=== PATIENT | female | born 2000 | race Caucasian/White ===

== ENCOUNTER 2024-08-31 21:18 | Inpatient (IN) ==
--- NOTE | 2024-08-31 22:09 | Emergency Department Note ---
Impression & Plan Depression with suicidal ideation, Alcoholic intoxication ED Provider Note NAME: REX BROWNING AGE: 23 SEX: F : 2000 ARRIVES VIA: Walk-In INFORMANT: Patient, triage report ED PROVIDER(S): Og Guzman MD CHIEF COMPLAINT: Suicidal ideation MEDICAL DECISION MAKING: Patient presents due to concern for suicidal ideation but without specific plan reported to myself. Patient is requesting inpatient treatment which I do not think is unreasonable provide she is medically cleared. Blood work was obtained. Patient with a white count of 12 he denies any infectious symptoms. H&H is normal with normal platelet count kidney function is unremarkable. Urinalysis negative for blood or infection test negative. Salicylate Tylenol are negative and UDS is negative. The patient's alcohol is 218. Pending clearance around 2 or 3 in the morning. COVID-negative. I did speak with case management and they will follow for reassessment post clearance of her alcohol. Patient signed out to Dr. Colmenares pending reevaluation and disposition. Discussion w/ other healthcare providers: None Prior /Outside records reviewed: None Differential diagnosis: Mood disorder, infection, hypoglycemia, electrolyte abnormalities, dehydration, medication side effect among others were considered. Diagnostics, as interpreted by me: ECG: None Medical decision rules: Suicide risk severity score Imaging studies: None HPI: Patient presents due to concern for SI but without plan. Patient denies any HI or AVH. The patient states that she has been feeling some the symptoms over the last week and states that her classwork has been "a lot." Patient states that she is doing okay in her classes but she does feel that it has been more unmanageable. The patient also did recently start a new job at [employer]. Patient denies any auditory or visual hallucinations. The patient does take bupropion and Prozac and states that she has been compliant. No recent changes or missed doses. Patient denies any access to guns or firearms. The patient is seeking inpatient treatment. Patient states that her LMP was about 1 month ago. This is normal for her. Patient states that her sleep and appetite have been fine. Patient denies any abdominal pain or nausea vomiting. Patient does admit to drinking 2 glasses of wine with friends earlier this evening but no additional. Patient had given a sample of toilet water for her urinalysis and when asked the patient states that she was concerned that she would be charged for her alcohol use and it might be tied to her suicidal ideation. PAST MEDICAL HISTORY: Anxiety, depression PAST SURGICAL HISTORY: No pertinent past surgical history SOCIAL HISTORY: [employer] student. Uses alcohol socially. Denies drug use. HOME MEDICATIONS: See Below ALLERGIES: See Below VITALS: See Below PHYSICAL EXAMINATION: GENERAL: Tearful but nontoxic and in no apparent distress. EYE EXAM: Normal conjunctiva. PERRL, no anisocoria and EOM's grossly intact w/o pain. OROPHARYNX: Moist mucus membranes, grossly normal dentition. NECK: Trachea midline, no stridor. Supple, no nuchal rigidity, no adenopathy, non-tender. No signs of meningismus. FROM of the neck with good chin to chest and neck extension. LUNGS: Clear to auscultation. Normal chest wall mechanics. HEART: NSR, no MRG. ABDOMEN: Abdomen soft, non-tender, no masses, no rebound or guarding. BACK: No CVA TTP. SKIN: No rashes and no bruising. UPPER EXTREMITIES: Upper extremities are grossly normal. LOWER EXTREMITIES: Grossly normal, no edema. NEURO EXAM: A&O x3, cranial nerves II-XII grossly intact, normal speech, moves all 4 extremities. Psych: Positive SI, negative HI or AVH. Past Med/Surg History Problem List (Updated 08/31/24 @ 23:52 by Og Guzman MD) Alcoholic intoxication (Acute) Depression with suicidal ideation (Acute) Social History Smoking Status: Current every day smoker Feels Safe at Home: Yes Results & Data (ED) Vital Signs Vital Signs - 24 hr 08/31/24 21:22 Temperature 36.8 C Temperature Source Temporal Artery Scan Pulse Rate 123 H Respiratory Rate 22 Blood Pressure 119/83 Blood Pressure Mean 95 Pulse Oximetry 97 Sepsis Recent Fever Within 48 Hours No Sepsis New/Unexplained Change in Mental Status N/A Sepsis Action Taken by Nursing No Action Required Home Medications Current Medication List: was personally reviewed by me Laboratory Data Attestation: I reviewed the patient's lab results. 08/31/24 22:46 08/31/24 21:35 Lab Results 10/12/24 10/12/24 10/12/24 Range/Units 21:35 22:46 Unknown WBC Cancelled 12.53 H RBC Cancelled 4.82 Hgb Cancelled 13.7 Hct Cancelled 42.4 MCV Cancelled 88.0 MCH Cancelled 28.4 MCHC Cancelled 32.3 RDW Std Deviation Cancelled 42.5 RDW Coeff of Shlomo Cancelled 13.1 Plt Count Cancelled 375 MPV Cancelled 9.0 L Immature Gran % (Auto) Cancelled 0.2 Neut % (Auto) Cancelled 61.5 Lymph % (Auto) Cancelled 31.4 [place] % (Auto) Cancelled 5.9 Eos % (Auto) Cancelled 0.5 Baso % (Auto) Cancelled 0.5 Neut # (Auto) Cancelled 7.72 H Lymph # (Auto) Cancelled 3.93 H [place] # (Auto) Cancelled 0.74 H Eos # (Auto) Cancelled 0.06 Baso # (Auto) Cancelled 0.06 Immature Gran # (Auto) Cancelled 0.02 Absolute Nucleated RBC Cancelled Nucleated RBC % (auto) Cancelled Neutrophils % (Manual) Cancelled Band Neutrophils % Cancelled Lymphocytes % (Manual) Cancelled Prolymphocyte % Cancelled Reactive Lymphs % (Man) Cancelled Monocytes % (Manual) Cancelled Eosinophils % (Manual) Cancelled Basophils % (Manual) Cancelled Metamyelocytes % (Man) Cancelled Myelocytes % (Man) Cancelled Promyelocytes % (Man) Cancelled Blast Cells % (Manual) Cancelled Plasma Cell % (Manual) Cancelled Other Cells % Cancelled Nucleated RBC % Cancelled Neutrophils # (Manual) Cancelled Band Neutrophils # Cancelled Total Absolute Neuts Cancelled Lymphocytes # (Manual) Cancelled Prolymphocyte # Cancelled Reactive Lymphs # Cancelled Total Abs Lymphocytes Cancelled Monocytes # (Manual) Cancelled Eosinophils # (Manual) Cancelled Basophils # (Manual) Cancelled Metamyelocytes # (Man) Cancelled Myelocytes # (Manual) Cancelled Promyelocytes # (Man) Cancelled Blast Cells # (Man) Cancelled Plasma Cell # (Manual) Cancelled Other Cells # Cancelled Nucleated RBCs # (Man) Cancelled Hypersegmented Neuts Cancelled Hyposegmented Neuts Cancelled Hypogranular Neuts Cancelled Large Granular Lymphs Cancelled # Lrg Granular Lymphs Cancelled Hairy Cells Cancelled Smudge Cells Cancelled Toxic Granulation Cancelled Toxic Vacuolation Cancelled Dohle Bodies Cancelled [place] Rods Cancelled Platelet Estimate Cancelled Hypogranular Platelets Cancelled Giant Platelets Cancelled Platelet Satelliting Cancelled RBC Morphology Cancelled Polychromasia Cancelled Hypochromasia Cancelled Poikilocytosis Cancelled Basophilic Stippling Cancelled Anisocytosis Cancelled Microcytosis Cancelled Macrocytosis Cancelled Spherocytes Cancelled Pappenheimer Bodies Cancelled Sickle Cells Cancelled Target Cells Cancelled Tear Drop Cells Cancelled Ovalocytes Cancelled Stomatocytes Cancelled [place] Bodies Cancelled Echinocytes Cancelled Acanthocytes (Spur) Cancelled Rouleaux Cancelled RBC Agglutinates Cancelled Schistocytes Cancelled [place]zary Cell Cancelled Sodium 139 (136-145) mmol/L Potassium 3.5 (3.5-5.1) mmol/L Chloride 107 (98-107) mmol/L Carbon Dioxide 21 (21-32) mmol/L Anion Gap 11 (3-11) BUN 8 (6-23) mg/dl Creatinine 0.70 (0.6-1.2) mg/dl Est Cr Clr Drug Dosing 91.3 ml/min eGFR 126.11 BUN/Creatinine Ratio 11.4 (10-20) Glucose 93 (70-99(Fasting)) mg/dl Calcium 9.5 (8.6-10.3) mg/dl Total Bilirubin 0.4 (0.2-1.0) mg/dl AST 19 (13-39) U/L ALT 14 (7-52) U/L Alkaline Phosphatase 69 (34-104) U/L Total Protein 8.0 (6.0-8.3) gm/dl Albumin 5.2 H (3.4-5.0) gm/dl Globulin 2.8 (2.5-4.0) gm/dl Albumin/Globulin Ratio 1.9 (0.9-2) TSH 1.720 (0.300-4.500) uIu/ml HCG, Qual Negative (Negative) Urine Color Yellow Urine Appearance Clear (Clear) Urine pH 6.0 (4.5-7.5) Ur Specific [place] 1.003 (1.000-1.030) Urine Protein Negative (Negative) Urine Glucose (UA) Negative (Negative) Urine Ketones Negative (Negative) Urine Blood Negative (Negative) Urine Nitrite Negative (Negative) Urine Bilirubin Negative (Negative) Urine Urobilinogen Negative (Negative) Ur Leukocyte Esterase Negative (Negative) Urine Test Negative (Negative) Salicylates < 3.0 L (3.0-30) mg/dl Urine Opiates Screen Neg (Neg) Ur Methadone, Qual Neg (Neg) Urine Fentanyl Screen Neg (Neg) Acetaminophen < 3 L (10-30) ug/ml Urine Barbiturates Neg (Neg) Ur Phencyclidine (PCP) Neg (Neg) U Amphetamin/Meth Scrn Neg (Neg) MDMA (Ecstasy) Screen Neg (Neg) U Benzodiazepines Scrn Neg (Neg) Ur Cocaine Metabolite Neg (Neg) U Marijuana (THC) Screen Neg (Neg) Ethyl Alcohol mg/dL 218.7 H (<10.0) mg/dl SARS-CoV-2, RNA, NAAT NEGATIVE (NEGATIVE) Blood Parasites ID Cancelled Discharge Plan Visit Data Chief Complaint: Mental Health Evaluation Stated Complaint: MENTAL HEALTH EVAL ED Provider: Og Guzman Discharge Problem: Depression with suicidal ideation, Alcoholic intoxication Forms Stand Alone Forms: [facility], Suicide Prevention Resources Referrals Referrals: PCP,NO [Primary Care Provider] - Discharge Problem: Alcoholic intoxication Qualifiers: Complication of substance-induced condition: uncomplicated Qualified Code(s): F 10.920 - Alcohol use, unspecified with intoxication, uncomplicated
[2024-08-31 22:14] LABS: Albumin Level 5.2 gm/dl (3.4-5.0); Bilirubin,Total 0.4 mg/dl (0.2-1.0); Calcium 9.5 mg/dl (8.6-10.3); Potassium 3.5 mmol/L (3.5-5.1)
[2024-08-31 22:20] LABS: Albumin Globulin Ratio 1.9 (0.9-2); BUN Creatinine Ratio 11.4 (10-20); Creatinine Clr Calc Pharmacy 91.3 ml/min; Globulin 2.8 gm/dl (2.5-4.0)
[2024-08-31 22:22] LABS: Acetaminophen < 3 ug/ml (10-30); Pregnancy Test, Serum Negative (Negative); Salicylate < 3.0 mg/dl (3.0-30)
[2024-08-31 22:51] LABS: Thyroid Stimulating Hormone 1.72 uIu/ml (0.300-4.500)
[2024-08-31 22:53] LABS: Pregnancy Test, Urine Negative (Negative)
[2024-08-31 23:09] LABS: Basophils # (auto) 0.06 K/uL (0.00-0.20); Basophils % (auto) 0.5 %; Eosinophils # (auto) 0.06 K/uL (0.00-0.50); Eosinophils % (auto) 0.5 %; Hematocrit (blood only) 42.4 % (37.0-47.0); Hemoglobin 13.7 g/dl (12.0-16.0); Immature Granulocytes # (auto) 0.02 K/uL (0.01-0.20); Immature Granulocytes % (auto) 0.2 %; Lymphocytes # (auto) 3.93 K/uL (1.20-3.40); Lymphocytes % (auto) 31.4 %; Mean Corpuscular Hemoglobin 28.4 pg (25.0-34.0); Mean Corpuscular Hgb Conc 32.3 g/dL (32.0-36.0); Monocytes # (auto) 0.74 K/uL (0.11-0.59); Monocytes % (auto) 5.9 %; Neutrophils # (auto) 7.72 K/uL (1.40-6.50); Neutrophils % (auto) 61.5 %; Platelet Count 375 K/uL (130-400); RDW Coefficient of Variation 13.1 % (11.5-14.5); RDW Standard Deviation 42.5 fL (36.4-46.3); Red Blood Count 4.82 M/uL (4.20-5.40); White Blood Count 12.53 K/ul (4.8-10.8)
[2024-08-31 23:12] LABS: Appearance Urine Clear (Clear); Bilirubin Urine Negative (Negative); Blood Urine Negative (Negative); Color Urine Yellow; Glucose Urine UA Negative (Negative); Ketones Urine Negative (Negative); Leukocyte Esterase Urine Negative (Negative); Nitrite Urine Negative (Negative); Protein Urine Negative (Negative); Specific Gravity Urine 1.003 (1.000-1.030); Urobilinogen Urine Negative (Negative)
[2024-08-31 23:41] LABS: Amphetamines+Metham, Urine Neg (Neg); Barbiturates, Urine Neg (Neg); Benzodiazepine, Urine Neg (Neg); Cocaine, Urine Neg (Neg); Fentanyl, Urine Neg (Neg); MDMA (Ecstacy), Urine Neg (Neg); Marijuana, Urine Neg (Neg); Methadone, Urine Neg (Neg); Opiate, Urine Neg (Neg); Phencyclidine, Urine Neg (Neg)
--- NOTE | 2024-09-01 00:18 | Emergency Department Note ---
ED Visit Note Date and Time: 09/01/2024 0015 Interval History: Sign out received from Dr. Guzman who reviewed details of the encounter. Patient was pending Sobriety. Summary: Patient was evaluated by the ED psychiatric piano case maker and remained suicidal. She was referred to [facility]. they have accepted her onto [facility]. is a voluntary admission. .
[2024-09-01] MEDS ORDERED: BISMUTH SUBSALICYLATE 262 MG CHEW PO PRN (05:49)
[2024-09-01] MEDS ORDERED: SODIUM CHLORIDE 0.65% NA SOLN 45 ML (OCEAN) PRN (05:49)
[2024-09-01] MEDS ORDERED: hydrOXYzine HCl 25 MG TAB PO PRN ×2 (05:49)
[2024-09-01] MEDS ORDERED: NICOTINE POLACRILEX 2 MG GUM MT PRN (05:49)
[2024-09-01] MEDS ORDERED: ALUMINUM/MAGNESIUM SUSP 30 ML UDC PO PRN (05:49)
[2024-09-01] MEDS ORDERED: MAGNESIUM HYDROXIDE SUSP 30 ML UDC PO PRN (05:49)
[2024-09-01] MEDS: ACETAMINOPHEN 325 MG TAB PO PRN (06:29)
--- NOTE | 2024-09-01 09:26 | History & Physical ---
Date of Service September 01, 2024 Impression / Recommendations Impression REX BROWNING is a 23-year-old woman and [employer] senior, on leave of absence, who currently lives in [place] with roommates who are friends, has a history of borderline personality disorder, ADHD, nonverbal learning disorder, alcohol use disorder and PTSD, and was admitted on 09/01/24 04:50 on a 201 voluntary commitment for depression with SI and intoxication. Diagnostically consistent with unspecified depression with differential including adjustment disorder with mixed anxiety and depressed mood vs MDD with anxious distress vs generalized anxiety disorder with panic attacks vs exacerbation of borderline personality disorder due to interpersonal, academic and work stressors. Discussed medication treatment options in detail including SSRI vs SNRI vs atomoxetine. Discussed risks, benefits and alternatives. She would like to continue with her fluoxetine for now, but is open to considering atomoxetine in the future, prefers to discuss with her mother and PCP before making any changes. Reviewed side effects of her fluoxetine including but not limited to: GI, RICH, sexual side effects, and counseled on black box warning of potential for emergence of or increased SI and need to let staff know should this occur or should they feel unsafe. Also discussed importance of seeking emergency care following discharge if this side effect occurs in the future. The patient's audit score and use history suggests alcohol use disorder. Motivational interviewing was done as a brief intervention. Intervention was greater than 5 minutes in length and included assessing readiness to quit, advice on how to reduce or abstain and to set a specific goal for this hospitalization. table worker will also assist in anticipating barriers to reducing or abstaining from substance use and in problem-solving for solutions to those problems while arranging for referral to appropriate treatment if she becomes agreeable to this. The patient is in precontemplative stage with regards to transtheoretical model of change. Recommended decreasing consumption due to disinhibiting effects and potential for worsening psychiatric symptoms. Overall I spent a total of 75 minutes for this admission including review of [facility], review of labwork, direct evaluation of the patient, counseling the patient, ordering medication, risk assessment, discussion with the psychiatric liason RN and documentation in the electronic health record. (1) Depression with suicidal ideation: (2) Depression, unspecified: (3) Borderline personality disorder: (4) Nonverbal learning disorder: (5) ADHD: (6) Alcohol use disorder: Plan 10/02/2024: The patient was [facility] to the [facility] on q15 min checks (behavioral with suicide precautions) for safety. The patient will participate in group, recreational, and milieu therapies and will be offered additional individual and family sessions as clinically appropriate. -continue fluoxetine 10mg daily -option to consider atomoxetine Inventory Assets Strengths: supportive relationships, willing to get treatment Needs: safety and stabilization, medication adjustment, additional coping skills, increased outpatient services Suicide Risk Level Suicide Risk Level: Moderate (q15 min suicide checks) (increased SI while in ED but lessened today, feels safe in the hospital, feels able to ask for support) Risk Factors Assessment Male: No : Yes Do You Have Access To A Gun?: No Health Problems: No Mental Health Diagnoses: Yes Substance Use Disorders: Yes Previous Attempt: No Family History of Suicide: No Previous Psychiatric Hospitalization: No Hopelessness: No Protective Factors Assessment Employed: Yes ([employer]) Stable Relationships: Yes Supportive Family: Yes Good Rapport with Provider: Yes Psychiatric History Identifying Data REX BROWNING is a 23-year-old woman and [employer] senior, on leave of absence, who currently lives in [place] with roommates who are friends, has a history of borderline personality disorder, ADHD, nonverbal learning disorder, alcohol use disorder and PTSD, and was admitted on 09/01/24 04:50 on a 201 voluntary commitment for depression with SI and intoxication. Chief Complaint "When I get really overwhelmed it triggers an episode and I get really emotional and like I can't calm down". History of Present Illness She presents for psychiatric admission for worsening depression and SI with feeling unable to remain safe in the context of multiple psychosocial stressors including starting a new job, balancing academic pressures, ending a relationship with a friend who now wants distance and drinking alcohol. She reports increased SI yesterday in the context of "wanting things to stop" and then she suspects she became more suicidal after drinking alcohol. KAYKAY on arrival to the ED was 218. She notes she typically seeks out help in an emergency room when she has these feelings of overwhelming emotions, typically about once per year, and that usually helps her feel "like I'm doing something" and then she often feels better quickly. She thinks she felt unable to safety plan last evening due to her alcohol use and disinhibition. She notes these episodes of "extreme emotions" feel different from panic attacks. She identifies a symptom of depression recently of feeling overwhelmed as well as anxiety with generalized worries, "nervous, fidgety and my brain just stops working". Sometimes she has panic attacks. She also describes a history of social anxiety and feeling "overly watched". She feels her sleep and appetite have been stable. She wishes she could be "more in control of my emotions and think before I act, not feel so much when I feel so much". Reports she was recently diagnosed with ADHD and a nonverbal learning disorder this summer and has been exploring possible medication options for ADHD with her PCP. She is currently prescribed fluoxetine 10mg (has been on this for about 2 years, initially it helped with anxiety but seemed to cause depression was at a higher dose of 20mg at one point and then stopped working; possible side effect of feeling "empty" like "there's nothings going on, I used to think more, feel more") and Vistaril 10mg daily prn for anxiety (she takes this a few times per month but doesn't like that it makes her tired) by her PCP. Psychiatric ROS notable for no current nor history of symptoms of hayes, psychosis (briefly experienced some possible visual hallucinations after of her friend but she was able to reality test, no symptoms after immediacy of the grieving period), nor eating disorder. She sometimes has to do things in a pattern of threes but doesn't feel it takes up excessive amounts of time or gets in the way of things nor is impairing. History of self-harm via biting and scratching herself sometimes when anxious. History of trauma but denies current symptoms of PTSD. Past Psychiatric History Current Psychiatric Diagnosis: Unspecified depressive d/o, ADHD by psychologist Outpatient Services: sees a therapist biweekly intensive outpatient program in [place] in 2021 Previous Psych Admissions: none Do You Have Access To A Gun?: No History of Previous Suicide Attempt: No Past Medication Trials: Wellbutrin, sertraline (wasn't helpful) Past Head Trauma/Neuro History History of Concussion/Seizure: No Allergies Allergy/AdvReac Type Severity Reaction Status Date / Time No Known Allergies Allergy Unverified 09/01/24 15:24 Home Medications Medication Instructions Recorded Confirmed Type Prozac 10 mg PO 1XD 09/01/24 09/01/24 History Family History Family History of: Depression (maternal side), Anxiety (both sides ), Psychosis/ThoughtDisorder (maternal side), Alcoholism/Drug Abuse (paternal side) and Bipolar (maternal side) Alcohol History Hx of Alcohol Use Over the Past 12 Months: Yes (once a week drinks to excess) AUDIT Total Score: 7 Typically drinks socially. She denies any negative consequences but acknowledges she sometimes drinks too much because "I don't feel it until it all hits". Smoking Use Have You Smoked or Used Tobacco Products in the Last 30 Days: Yes tobacco type: cigarettes Smoking Status: Current every day smoker Smoking packs per day: 0.25 Substance History Hx of Prescription Med Misuse Over the Past 12 Months: No Hx of Over the Counter Med Misuse Over the Past 12 Months: No Hx of Inhalent Misuse Over the Past 12 Months: No Hx of Organic Substance Use Over the Past 12 Months: No Hx of Illegal Substances/Street Drug Use Over Past 12 Months: No Problems as a Result of Past Substance Use: None Identified Personal History Living Arrangements: Apartment Childhood: Mother is supportive, no relationship with her dad Highest Grade Completed: Some College Employment Status: Student (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 Other Number Of Children: n/a Beliefs That Will Affect Care: None Current Legal Problems: No Hx Legal Problems: No Hx Traumatic Life Events: Yes Patient History Social History Smoking Status: Current every day smoker Preferred Language: German Communication Ability: Effective Java Support Engineer Required: No Beliefs That Will Affect Care: None Feels Safe at Home: Yes Gender Identity: Female Assistive Devices: None Review of Systems Review of Systems: All systems reviewed & are unremarkable except as noted in HPI & below Physical Exam Psychiatric: Orientation: alert and oriented x 3 Apperance: appropriately dressed and appropriately groomed Eye Contact: good eye contact Motor Behavior: no abnormal motor movements Speech: normal rate/rhythm/volume of speech Affect: + constricted affect Mood: + anxious mood Thought Process: goal directed thought process Thought Content: reality based without delusions Suicidal Thoughts: denies suicidal plan and denies suicidal intent; + reports suicidal thoughts (intermittent thoughts, none so far today) Homicidal Thoughts: denies homicidal thoughts Hallucinations: no auditory hallucinations and no visual hallucinations Cognition: recent memory grossly intact, remote memory grossly intact, attention grossly intact and language grossly intact Estimated Intelligence: consistent with education level Insight: + fair insight Judgment: + limited judgement Vital Signs (Past 24 Hours): Last Vital Signs Temp 36.6 C 09/01/24 02:00 Pulse 94 H 09/01/24 05:45 Resp 18 09/01/24 05:45 BP 106/75 09/01/24 05:45 Pulse Ox 100 09/01/24 05:45 O2 Del Method Room Air 09/01/24 05:45 Exam Statement: A physical exam was performed in the ED by Dr. Guzman for the purposes of medical clearance. I accept that physical as correct and adequate for the purposes of the inpatient physical exam. Results & Data ([facility]) Laboratory Results Laboratory Results - last 24 hr 08/31/24 08/31/24 08/31/24 21:35 22:46 Unknown WBC Cancelled 12.53 H RBC Cancelled 4.82 Hgb Cancelled 13.7 Hct Cancelled 42.4 MCV Cancelled 88.0 MCH Cancelled 28.4 MCHC Cancelled 32.3 RDW Std Deviation Cancelled 42.5 RDW Coeff of Shlomo Cancelled 13.1 Plt Count Cancelled 375 MPV Cancelled 9.0 L Immature Gran % (Auto) Cancelled 0.2 Neut % (Auto) Cancelled 61.5 Lymph % (Auto) Cancelled 31.4 [place] % (Auto) Cancelled 5.9 Eos % (Auto) Cancelled 0.5 Baso % (Auto) Cancelled 0.5 Neut # (Auto) Cancelled 7.72 H Lymph # (Auto) Cancelled 3.93 H [place] # (Auto) Cancelled 0.74 H Eos # (Auto) Cancelled 0.06 Baso # (Auto) Cancelled 0.06 Immature Gran # (Auto) Cancelled 0.02 Absolute Nucleated RBC Cancelled Nucleated RBC % (auto) Cancelled Neutrophils % (Manual) Cancelled Band Neutrophils % Cancelled Lymphocytes % (Manual) Cancelled Prolymphocyte % Cancelled Reactive Lymphs % (Man) Cancelled Monocytes % (Manual) Cancelled Eosinophils % (Manual) Cancelled Basophils % (Manual) Cancelled Metamyelocytes % (Man) Cancelled Myelocytes % (Man) Cancelled Promyelocytes % (Man) Cancelled Blast Cells % (Manual) Cancelled Plasma Cell % (Manual) Cancelled Other Cells % Cancelled Nucleated RBC % Cancelled Neutrophils # (Manual) Cancelled Band Neutrophils # Cancelled Total Absolute Neuts Cancelled Lymphocytes # (Manual) Cancelled Prolymphocyte # Cancelled Reactive Lymphs # Cancelled Total Abs Lymphocytes Cancelled Monocytes # (Manual) Cancelled Eosinophils # (Manual) Cancelled Basophils # (Manual) Cancelled Metamyelocytes # (Man) Cancelled Myelocytes # (Manual) Cancelled Promyelocytes # (Man) Cancelled Blast Cells # (Man) Cancelled Plasma Cell # (Manual) Cancelled Other Cells # Cancelled Nucleated RBCs # (Man) Cancelled Hypersegmented Neuts Cancelled Hyposegmented Neuts Cancelled Hypogranular Neuts Cancelled Large Granular Lymphs Cancelled # Lrg Granular Lymphs Cancelled Hairy Cells Cancelled Smudge Cells Cancelled Toxic Granulation Cancelled Toxic Vacuolation Cancelled Dohle Bodies Cancelled Barber Rods Cancelled Platelet Estimate Cancelled Hypogranular Platelets Cancelled Giant Platelets Cancelled Platelet Satelliting Cancelled RBC Morphology Cancelled Polychromasia Cancelled Hypochromasia Cancelled Poikilocytosis Cancelled Basophilic Stippling Cancelled Anisocytosis Cancelled Microcytosis Cancelled Macrocytosis Cancelled Spherocytes Cancelled Pappenheimer Bodies Cancelled Sickle Cells Cancelled Target Cells Cancelled Tear Drop Cells Cancelled Ovalocytes Cancelled Stomatocytes Cancelled Ramos-Lanett Bodies Cancelled Echinocytes Cancelled Acanthocytes (Spur) Cancelled Rouleaux Cancelled RBC Agglutinates Cancelled Schistocytes Cancelled Sezary Cell Cancelled Sodium 139 Potassium 3.5 Chloride 107 Carbon Dioxide 21 Anion Gap 11 BUN 8 Creatinine 0.70 Est Cr Clr Drug Dosing 91.3 eGFR 126.11 BUN/Creatinine Ratio 11.4 Glucose 93 Calcium 9.5 Total Bilirubin 0.4 AST 19 ALT 14 Alkaline Phosphatase 69 Total Protein 8.0 Albumin 5.2 H Globulin 2.8 Albumin/Globulin Ratio 1.9 TSH 1.720 HCG, Qual Negative Urine Color Yellow Urine Appearance Clear Urine pH 6.0 Ur Specific [place] 1.003 Urine Protein Negative Urine Glucose (UA) Negative Urine Ketones Negative Urine Blood Negative Urine Nitrite Negative Urine Bilirubin Negative Urine Urobilinogen Negative Ur Leukocyte Esterase Negative Urine Test Negative Salicylates < 3.0 L Urine Opiates Screen Neg Ur Methadone, Qual Neg Urine Fentanyl Screen Neg Acetaminophen < 3 L Urine Barbiturates Neg Ur Phencyclidine (PCP) Neg U Amphetamin/Meth Scrn Neg MDMA (Ecstasy) Screen Neg U Benzodiazepines Scrn Neg Ur Cocaine Metabolite Neg U Marijuana (THC) Screen Neg Ethyl Alcohol mg/dL 218.7 H SARS-CoV-2, RNA, NAAT NEGATIVE Blood Parasites ID Cancelled Current Inpatient Medications Current Inpatient Medications: Current Inpatient Medications Acetaminophen (Acetaminophen 325 Mg Tab) 650 mg PO Q4H PRN PRN Reason: Headache or Minor Fever Stop: 10/01/24 05:48 Last Admin: 09/01/24 06:29 Dose: 650 mg Al Hydrox/Mg Hydrox/Simethicone (Aluminum/Magnesium Susp 30 Ml Udc) 30 ml PO Q4H PRN PRN Reason: GI Upset Stop: 10/01/24 05:48 Bismuth Subsalicylate (Bismuth Subsalicylate 262 Mg Chew) 2 tab PO Q30M PRN PRN Reason: Loose Stool/Diarrhea Stop: 10/01/24 05:48 Hydroxyzine HCl (Hydroxyzine Hcl 25 Mg Tab) 50 mg PO HSZ PRN PRN Reason: Insomnia Stop: 10/01/24 05:48 Hydroxyzine HCl (Hydroxyzine Hcl 25 Mg Tab) 25 mg PO Q4H PRN PRN Reason: Anxiety Stop: 10/01/24 05:48 Magnesium Hydroxide (Magnesium Hydroxide Susp 30 Ml Udc) 30 ml PO DAILY PRN PRN Reason: Constipation Stop: 10/01/24 05:48 Miscellaneous (Remove Nicoderm Patch) 1 each N/A DAILY@0859 [facility] Stop: 10/01/24 08:58 Nicotine (Nicotine 21 Mg/24 Hr Tdsy) 1 patch TD QAM [facility] Stop: 10/01/24 08:59 Nicotine Polacrilex (Nicotine Polacrilex 2 Mg Gum) 2 piece MT PRN PRN PRN Reason: Nicotine Withdrawal Symptoms Stop: 10/01/24 05:48 Sodium Chloride (Sodium Chloride 0.65% Na Soln 45 Ml (Venturia)) 1 - 2 sprays NA PRN PRN PRN Reason: Nasal Dryness/Congestion Stop: 10/01/24 05:48
[2024-09-01] MEDS: NICOTINE 21 MG/24 HR TDSY TD SCH (11:00)
[2024-09-01] MEDS: FLUoxetine HCL 10 MG CAP PO SCH (14:15)
--- NOTE | 2024-09-02 08:59 | Discharge Summary ---
Date of Service September 02, 2024 History of Present Illness She presents for psychiatric admission for worsening depression and SI with feeling unable to remain safe in the context of multiple psychosocial stressors including starting a new job, balancing academic pressures, ending a relationship with a friend who now wants distance and drinking alcohol. She reports increased SI yesterday in the context of "wanting things to stop" and then she suspects she became more suicidal after drinking alcohol. KAYKAY on arrival to the ED was 218. She notes she typically seeks out help in an emergency room when she has these feelings of overwhelming emotions, typically about once per year, and that usually helps her feel "like I'm doing something" and then she often feels better quickly. She thinks she felt unable to safety plan last evening due to her alcohol use and disinhibition. She notes these episodes of "extreme emotions" feel different from panic attacks. She identifies a symptom of depression recently of feeling overwhelmed as well as anxiety with generalized worries, "nervous, fidgety and my brain just stops working". Sometimes she has panic attacks. She also describes a history of social anxiety and feeling "overly watched". She feels her sleep and appetite have been stable. She wishes she could be "more in control of my emotions and think before I act, not feel so much when I feel so much". Reports she was recently diagnosed with ADHD and a nonverbal learning disorder this summer and has been exploring possible medication options for ADHD with her PCP. She is currently prescribed fluoxetine 10mg (has been on this for about 2 years, initially it helped with anxiety but seemed to cause depression was at a higher dose of 20mg at one point and then stopped working; possible side effect of feeling "empty" like "there's nothings going on, I used to think more, feel more") and Vistaril 10mg daily prn for anxiety (she takes this a few times per month but doesn't like that it makes her tired) by her PCP. Psychiatric ROS notable for no current nor history of symptoms of hayes, psy chosis (briefly experienced some possible visual hallucinations after of her friend but she was able to reality test, no symptoms after immediacy of the grieving period), nor eating disorder. She sometimes has to do things in a pattern of threes but doesn't feel it takes up excessive amounts of time or gets in the way of things nor is impairing. History of self-harm via biting and scratching herself sometimes when anxious. History of trauma but denies current symptoms of PTSD. Physical Exam Vital Signs (Past 24 Hours) Last Vital Signs Temp 36.8 C 09/02/24 06:43 Pulse 87 09/02/24 06:43 Resp 16 09/02/24 06:43 BP 101/68 09/02/24 06:43 Pulse Ox 98 09/02/24 06:43 O2 Del Method Room Air 09/02/24 06:43 Principal Diagnosis Unspecified Depressive Disorder Psychiatric Data See daily stay summary. In short, patient was engaged with the social/therapeutic milieu of the unit, safety was maintained and the patient was cooperative with care. She preferred not to make any medication changes, we did discuss option to consider Strattera in the future. She declined a support session but nursing did speak with her mother who did not have any safety concerns. She declined referrals for any local outpatient mental health services due to limitations with her insurance coverage and that accessing private pay options or sliding scale would be cost prohibitive. A safety plan was completed prior to discharge. She participated in safety planning and in discussions about ways to seek support and recognizing warning signs and utilizing coping skills. Reviewed ways to have her safety plan and contacts easily available should thoughts of SI re- emerge in the future. Reviewed importance of seeking emergency care should SI intensify, worsen or should they feel unsafe in the future which she agrees to do. On the day of discharge she stated her mood was "good" and remained future- oriented including returning to work and school and engaging in aftercare appointments with her primary care provider. Day of Discharge Assessment Today the patient voices readiness for discharge. They note improvement in mood and anxiety. They deny thoughts of harm to self or others. Thoughts are organized and they are clinically improved from admission. There is no evidence of psychosis. They improved in the hospital with support and medication adjustments. They agree to take medications as prescribed and keep follow-up appointments. At the time of the discharge they are deemed to be stable and appropriate for outpatient level of care. They are not deemed to be at imminent risk of harm to self or others. They are aware of emergency and crisis services. Knows to call 911 or go to nearest emergency care center if in a crisis which cannot be handled as an outpatient. Suicide risk assessment: Acute risk is low given improvement in mood and denial of SI, lack of access to lethal means, hopefulness. Chronic risk is moderate given some non-modifiable risk factors: psychiatric co-morbid diagnoses, periods of impulsivity, hx self- harm, emotional reactivity, cluster B personality disorder, childhood trauma, but also with protective factors including employed, student, good social support, sense of responsibility to family and social supports, positive coping skills, positive problem solving, and self-observation. Counseled on ways to reduce acute and chronic risk including using safety plan if needed, utilizing supports, taking medication, and using coping skills. Modifiable risk factors of SI and depression were addressed during hospitalization through development of new coping skills, safety planning, and discussion of additional medication options. Discharge physical exam: See admission H&P, MSE per above and day of discharge summary. Overall, I spent a total of 35 minutes on this case including meeting with the patient, reviewing the chart, nursing report, multidisciplinary team meeting, discharge orders, anticipatory planning, safety planning, risk assessment and documentation. Transition of Care Transition Of Care Record: was reviewed with the patient Advance Directives Advance Directives Information Provided: Yes Advance Directives: No Mental Health Advance Directive: No Advance Directives on File: No Living Will: No Power of Serging Machine Operator: No Advance Directives Reason:: Declines as Mental Health Visit. Suicide Risk Level Suicide Risk Level Comments: Acute risk is low, see further assessment above Risk Factors Assessment Male: No : Yes Do You Have Access To A Gun?: No Health Problems: No Mental Health Diagnoses: Yes Substance Use Disorders: Yes Previous Attempt: No Family History of Suicide: No Previous Psychiatric Hospitalization: No Hopelessness: No Protective Factors Assessment Employed: Yes ([employer]) Stable Relationships: Yes Supportive Family: Yes Good Rapport with Provider: Yes Discharge Data Lab Results 08/31/24 08/31/24 08/31/24 21:35 22:46 Unknown WBC Cancelled 12.53 H RBC Cancelled 4.82 Hgb Cancelled 13.7 Hct Cancelled 42.4 MCV Cancelled 88.0 MCH Cancelled 28.4 MCHC Cancelled 32.3 RDW Std Deviation Cancelled 42.5 RDW Coeff of Shlomo Cancelled 13.1 Plt Count Cancelled 375 MPV Cancelled 9.0 L Immature Gran % (Auto) Cancelled 0.2 Neut % (Auto) Cancelled 61.5 Lymph % (Auto) Cancelled 31.4 Meagher % (Auto) Cancelled 5.9 Eos % (Auto) Cancelled 0.5 Baso % (Auto) Cancelled 0.5 Neut # (Auto) Cancelled 7.72 H Lymph # (Auto) Cancelled 3.93 H Meagher # (Auto) Cancelled 0.74 H Eos # (Auto) Cancelled 0.06 Baso # (Auto) Cancelled 0.06 Immature Gran # (Auto) Cancelled 0.02 Absolute Nucleated RBC Cancelled Nucleated RBC % (auto) Cancelled Neutrophils % (Manual) Cancelled Band Neutrophils % Cancelled Lymphocytes % (Manual) Cancelled Prolymphocyte % Cancelled Reactive Lymphs % (Man) Cancelled Monocytes % (Manual) Cancelled Eosinophils % (Manual) Cancelled Basophils % (Manual) Cancelled Metamyelocytes % (Man) Cancelled Myelocytes % (Man) Cancelled Promyelocytes % (Man) Cancelled Blast Cells % (Manual) Cancelled Plasma Cell % (Manual) Cancelled Other Cells % Cancelled Nucleated RBC % Cancelled Neutrophils # (Manual) Cancelled Band Neutrophils # Cancelled Total Absolute Neuts Cancelled Lymphocytes # (Manual) Cancelled Prolymphocyte # Cancelled Reactive Lymphs # Cancelled Total Abs Lymphocytes Cancelled Monocytes # (Manual) Cancelled Eosinophils # (Manual) Cancelled Basophils # (Manual) Cancelled Metamyelocytes # (Man) Cancelled Myelocytes # (Manual) Cancelled Promyelocytes # (Man) Cancelled Blast Cells # (Man) Cancelled Plasma Cell # (Manual) Cancelled Other Cells # Cancelled Nucleated RBCs # (Man) Cancelled Hypersegmented Neuts Cancelled Hyposegmented Neuts Cancelled Hypogranular Neuts Cancelled Large Granular Lymphs Cancelled # Lrg Granular Lymphs Cancelled Hairy Cells Cancelled Smudge Cells Cancelled Toxic Granulation Cancelled Toxic Vacuolation Cancelled Dohle Bodies Cancelled Barber Rods Cancelled Platelet Estimate Cancelled Hypogranular Platelets Cancelled Giant Platelets Cancelled Platelet Satelliting Cancelled RBC Morphology Cancelled Polychromasia Cancelled Hypochromasia Cancelled Poikilocytosis Cancelled Basophilic Stippling Cancelled Anisocytosis Cancelled Microcytosis Cancelled Macrocytosis Cancelled Spherocytes Cancelled Pappenheimer Bodies Cancelled Sickle Cells Cancelled Target Cells Cancelled Tear Drop Cells Cancelled Ovalocytes Cancelled Stomatocytes Cancelled Ramos-Sholes Bodies Cancelled Echinocytes Cancelled Acanthocytes (Spur) Cancelled Rouleaux Cancelled RBC Agglutinates Cancelled Schistocytes Cancelled Sezary Cell Cancelled Sodium 139 Potassium 3.5 Chloride 107 Carbon Dioxide 21 Anion Gap 11 BUN 8 Creatinine 0.70 Est Cr Clr Drug Dosing 91.3 eGFR 126.11 BUN/Creatinine Ratio 11.4 Glucose 93 Calcium 9.5 Total Bilirubin 0.4 AST 19 ALT 14 Alkaline Phosphatase 69 Total Protein 8.0 Albumin 5.2 H Globulin 2.8 Albumin/Globulin Ratio 1.9 TSH 1.720 HCG, Qual Negative Urine Color Yellow Urine Appearance Clear Urine pH 6.0 Ur Specific [place] 1.003 Urine Protein Negative Urine Glucose (UA) Negative Urine Ketones Negative Urine Blood Negative Urine Nitrite Negative Urine Bilirubin Negative Urine Urobilinogen Negative Ur Leukocyte Esterase Negative Urine Test Negative Salicylates < 3.0 L Urine Opiates Screen Neg Ur Methadone, Qual Neg Urine Fentanyl Screen Neg Acetaminophen < 3 L Urine Barbiturates Neg Ur Phencyclidine (PCP) Neg U Amphetamin/Meth Scrn Neg MDMA (Ecstasy) Screen Neg U Benzodiazepines Scrn Neg Ur Cocaine Metabolite Neg U Marijuana (THC) Screen Neg Ethyl Alcohol mg/dL 218.7 H SARS-CoV-2, RNA, NAAT NEGATIVE Blood Parasites ID Cancelled Hospital Course (1) Depression with suicidal ideation: (2) Depression, unspecified: (3) Borderline personality disorder: (4) Nonverbal learning disorder: (5) ADHD: (6) Alcohol use disorder: Plan 09/02/2024: Mood remains stable and improved with no SI. She desires discharge. 09/01/2024: The patient was admitted to the [facility] ([facility]) on q15 min checks (behavioral with suicide precautions) for safety. The patient will participate in group, recreational, and milieu therapies and will be offered additional individual and family sessions as clinically appropriate. -continue fluoxetine 10mg daily -option to consider atomoxetine Mental Health & Subst Abuse Tx Therapist Name of Therapist: Vanesa Date of Therapist Appointment: 09/06 Web Content Developer Name of Web Content Developer: NOEMÍ Post Discharge Appointments Primary Care Physician Name Of Family Doctor/PCP: Judy Duran Discharge Plan Discharge Items Patient Disposition: Home - Self-Care Reason For Visit: SI, DEPRESSION Discharge Diagnosis: Unspecified Depressive Disorder Activity: Resume your previous activity Non-emergency contact: Primary Care Provider and Therapist Call non-emergency contact if: you have any medication questions and your symptoms worsen Follow-up/Referrals: PCP,NO [Primary Care Provider] - Diet: Regular Addtl Attending Provider Instructions: Optional mobile apps: -Suicide safety plan -Virtual Hope Box SPECIAL CARE INSTRUCTIONS: 1. Follow through with your scheduled aftercare appointments. If unable to keep an appointment, please call to reschedule. 2. Take your medication only as prescribed. Medication should not be changed or stopped without the approval of your doctor. In the event of worsening symptoms or concerns about side effects, contact your doctor immediately. 3. Utilize new healthy coping skills, anger management skills, and stress management skills learned during your hospitalization. Journal feelings and process them with a support person. Identify stressors or situations that may result in relapse, deterioration or inappropriate behaviors and develop a plan to deal with those issues. 4. If your coping skills are ineffective and you are in crisis, contact your outpatient providers for direction. If unable to reach your providers, please call the [facility] CRISIS LINE AT , go to the [facility] walk-in center at [address] [place] [address] [facility], or go to the closest Emergency Room. 5. Avoid alcohol and un-prescribed drugs. 6. You have been provided with the Mental Health Advance Directives Pamphlet for your review. 7. Your condition is stable for discharge to outpatient level of care, but recovery is an ongoing process. Ifthoughts to harm yourself or others return, follow the safety plan developed during your stay. Planning for a safe return home includes securing weapons. Our treatment team recommends weaponsbe removed from the home until your outpatient provider reassesses your progress. In rare cases where the items themselvescannot be removed, guns and ammunitionshould be secured separatelyand keys stored by a reliable personoutside of the home. If you were admitted on an involuntary commitment, the police or other legal authorities may be involved in this process. AFTERCARE APPOINTMENTS: * Please call your insurance company prior to your scheduled appointment to confirm your aftercare providers are covered. Take your insurance information to your appointments. WHO TO CALL AND WHEN: Medical Emergencies: For questions or emergencies related to your hospital stay, please contact the Inpatient Behavioral Health Unit at [phone]. A brokerage manager is on-call 12/06 for the Behavioral Health Unit for emergencies At any time you feel your situation is an emergency, you may also call 911 immediately. National Crisis Hotline: 988 Pending Studies at Discharge: No Stand-Alone Forms: My [facility], Smoking Cessation Medications and DC Order Prescriptions: Continued Prozac 10 mg PO 1XD Discharge Orders: Discharge Order (Routine); Ordered 09/02/24 Ordered By: Lizet Kirkpatrick Admission Data Admit Date/Time: 09/01/24 04:50 Attending Provider: Lizet Kirkpatrick Admit Provider: Lizet Kirkpatrick Primary Care Provider: PCP,NO Coding Level of Care Code 09263 D/C day mgmt > 30 min Diagnoses Depression with suicidal ideation F32.A; R45.851 Depression, unspecified F32.A Borderline personality disorder F60.3 Nonverbal learning disorder F81.89 ADHD F90.9 Alcohol use disorder F10.90
== END 2024-09-02 12:35 | disposition home or self-care (01) | DRG 881 ==
LOC: ED 21:18 → 3S 09-01 04:50